=== PATIENT | female | born 1955 ===

== ENCOUNTER 2019-02-08 15:56 | Emergency (ER) | payer MEDICAID ==
[2019-02-08 16:29] VITALS: RESP 18
[2019-02-08] MEDS ORDERED: Sodium Chloride 0.9% 1,000 ML IV STA (17:14)
[2019-02-08 17:41] LABS: BASO # 0.1 K/uL (0.0-0.2); BASO % 1.1 % (0.0-2.0); EOS # 0.1 K/uL (0.0-0.7); EOS % 1.5 % (0.0-4.0); HEMOGLOBIN 12.4 g/dL (12.0-16.0); LYMPH % 34.5 % (20.0-40.0); MEAN CORPUSCULAR HEMOGLOBIN 29.3 pg (27.0-31.0); MEAN CORPUSCULAR HGB CONC 33.6 g/dL (33.0-37.0); MEAN PLATELET VOLUME 7.4 fl (7.2-11.7); MONO # 0.5 K/uL (0.0-0.8); MONO % 9.1 % (0.0-10.0); NEUT # 3.1 K/uL (1.8-7.0); NEUT % 53.8 % (50.0-75.0); NRBC % 0.1 % (0.0-0.0); RBC 4.23 Mil/uL (3.80-5.20); RED CELL DISTRIBUTION WIDTH 13.8 % (11.5-14.5); WHITE BLOOD COUNT 5.8 K/uL (4.8-10.8)
--- NOTE | 2019-02-08 17:46 | ED PDOC ---
HPI: Abdomen Time Seen by Provider: 02/08/19 16:00 Chief Complaint (Nursing): Female Genitourinary Chief Complaint (Provider): RLQ and Left Flank Pain History Per: Patient History/Exam Limitations: no limitations Onset/Duration Of Symptoms: Days (a few) Current Symptoms Are (Timing): Still Present Additional Complaint(s): 64 year old female presents to the ED for evaluation of RLQ and left flank pain for the past few days associated with nausea and chills. Patient states she believes she passed a kidney stone on her right side, since she has passed one in the past and believes it is similar pain. Yesterday, patient went to [place] for blood work, but does not know the results yet, but presents today due to worsening pain. Denies any other associated complaints. PMD: [place] Past Medical History Reviewed: Historical Data, Nursing Documentation, Vital Signs Vital Signs: Last Vital Signs Temp 98.6 F 02/08/19 16:27 Pulse 73 02/08/19 16:27 Resp 18 02/08/19 16:27 BP 173/102 H 02/08/19 16:27 Pulse Ox 98 02/08/19 16:27 - Medical History PMH: Diabetes, HTN, Kidney Stones, Chronic Kidney Disease Other PMH: GOUT - Surgical History Surgical History: No Surg Hx - Family History Family History: States: Unknown Family Hx - Social History Current smoker - smoking cessation education provided: No Alcohol: None Drugs: Denies - Immunization History Hx Tetanus Toxoid Vaccination: No Hx Influenza Vaccination: No Hx Pneumococcal Vaccination: No - Home Medications Home Medications: Ambulatory Orders Medication Instructions Recorded Levofloxacin [Levaquin] 750 mg PO DAILY 7 Days #7 tablet 02/08/19 metroNIDAZOLE [Flagyl] 500 mg PO BID 7 Days tab 02/08/19 - Allergies Allergies/Adverse Reactions: Allergies Allergy/AdvReac Type Severity Reaction Status Date / Time shellfish derived Allergy RASH Verified 02/08/19 16:29 Review of Systems ROS Statement: Except As Marked, All Systems Reviewed And Found Negative Constitutional: Positive for: Chills Gastrointestinal: Positive for: Nausea, Abdominal Pain (RLQ and left flank) Physical Exam - Reviewed Nursing Documentation Reviewed: Yes Vital Signs Reviewed: Yes - Physical Exam Appears: Positive for: No Acute Distress Head Exam: Positive for: ATRAUMATIC, NORMOCEPHALIC Skin: Positive for: Normal Color, Warm. Negative for: Rash Eye Exam: Positive for: Normal appearance ENT: Positive for: Normal ENT Inspection Neck: Positive for: Normal, Painless ROM, Supple Cardiovascular/Chest: Positive for: Regular Rate, Rhythm Respiratory: Positive for: Normal Breath Sounds. Negative for: Respiratory Distress Gastrointestinal/Abdominal: Positive for: Bowel Sounds, Soft, Tenderness (RLQ and left flank tenderness). Negative for: Mass, Guarding, Rebound Back: Positive for: Normal Inspection Extremity: Positive for: Normal ROM (all extremities) Neurological/Psych: Positive for: Awake, Alert, Oriented (x3). Negative for: Motor/Sensory Deficits - Laboratory Results Result Diagrams: 02/08/19 17:34 02/08/19 17:34 - ECG O2 Sat by Pulse Oximetry: 98 (RA) Pulse Ox Interpretation: Normal Medical Decision Making Medical Decision Making: Time: 1712 Impression: flank pain ro uti r/o pyelonephritis Plan: --CT abd/pelvis w/o contrast --CMP --CBC with differential --Normal saline IV --Toradol 15mg IV --Zofran 4mg IV --Urine culture --Urinalysis --Reevaluation 1899 Labs show some renal insufficiency. Patient care endorsed to Dr. Flynn pending CT and reeval. Scribe Attestation: Documented by Rosaura Castanon, acting as a scribe for Adelaida Friedman MD. Provider Scribe Attestation: All medical record entries made by the Scribe were at my direction and personally dictated by me. I have reviewed the chart and agree that the record accurately reflects my personal performance of the history, physical exam, medical decision making, and the department course for this patient. I have also personally directed, reviewed, and agree with the discharge instructions and disposition. Disposition - Clinical Impression Clinical Impression: Diverticulitis, UTI (urinary tract infection) - Patient ED Disposition Is Patient to be Admitted: Transfer of Care - Disposition Referrals: Sylvie Roche DO [[facility]] - Disposition: Transfer of Care Disposition Time: 19:00 Condition: IMPROVED Prescriptions: Levofloxacin [Levaquin] 750 mg PO DAILY 7 Days #7 tablet metroNIDAZOLE [Flagyl] 500 mg PO BID 7 Days tab Instructions: Urinary Tract Infections in Adults, Diverticulitis Forms: [facility] ([place]) Patient Signed Over To: Diogo Flynn
[2019-02-08 18:07] LABS: ALB/GLOB RATIO 1.1 (1.0-2.1); ALBUMIN 4.2 g/dL (3.5-5.0); CALCIUM 9.6 mg/dL (8.4-10.2)
--- NOTE | 2019-02-08 19:43 | ED PDOC ---
- Laboratory Results Result Diagrams: 02/08/19 17:34 02/08/19 17:34 Lab Results: Total Bilirubin 0.5 mg/dl (0.2-1.3) 02/08/19 17:34 AST 52 U/L (14-36) H 02/08/19 17:34 ALT 27 U/L (9-52) 02/08/19 17:34 Alkaline Phosphatase 107 U/L (38-126) 02/08/19 17:34 Total Protein 8.1 G/DL (6.3-8.2) 02/08/19 17:34 Albumin 4.2 g/dL (3.5-5.0) 02/08/19 17:34 Globulin 3.9 gm/dL (2.2-3.9) 02/08/19 17:34 Albumin/Globulin Ratio 1.1 (1.0-2.1) 02/08/19 17:34 - ECG O2 Sat by Pulse Oximetry: 98 (RA) Medical Decision Making Medical Decision Makin Patient care endorsed from Dr. Friedman to this provider pending CT and reevaluation. CT FINDINGS: LUNG BASES: The lung bases appear clear. No pleural effusions are seen. LIVER: Unremarkable. GALLBLADDER AND BILE DUCTS: The gallbladder appears within normal limits. No radioopaque gallstones are seen. No biliary ductal dilatation is evident. PANCREAS: Unremarkable. SPLEEN: Unremarkable. ADRENAL GLANDS: Unremarkable. KIDNEYS, URETERS, AND BLADDER: A punctate non-obstructing calculus is present in the superior pole of the left kidney. STOMACH AND BOWEL: There is diffuse diverticulosis noted involving descending and sigmoid colon. There is mild inflammatory stranding noted adjacent to the distal descending colon compatible with mild or resolving diverticulitis. APPENDIX: No evidence of acute appendicitis on CT examination. PERITONEUM: No free fluid. No free air. LYMPH NODES: No lymphadenopathy is evident. REPRODUCTIVE: Unremarkable as visualized. VASCULATURE: No evidence of abdominal aortic aneurysm. BONES: No aggressive appearing osseous lesion. No acute osseous pathology evident. IMPRESSION: 1. Diffuse diverticulosis noted involving descending and sigmoid colon. There is mild inflammatory stranding noted adjacent to the distal descending colon compatible with mild or resolving diverticulitis. 2. A punctate non-obstructing calculus is present in the superior pole of the left kidney. [address] and labs with patient. Advised to follow up with PMD for further care and eval as needed. All questions answered and patient well appearing, ready for discharge with stable vitals. Advised copious fluids. Return precautions were discussed: high fevers, sweats, vomiting, worsening pain, or any other concerning symptoms. Scribe Attestation: Documented by Rosaura Castanon, acting as a scribe for Diogo Flynn MD. Provider Scribe Attestation: All medical record entries made by the Scribe were at my direction and personally dictated by me. I have reviewed the chart and agree that the record accurately reflects my personal performance of the history, physical exam, medical decision making, and the department course for this patient. I have also personally directed, reviewed, and agree with the discharge instructions and disposition. Disposition - Clinical Impression Clinical Impression: Diverticulitis, UTI (urinary tract infection) - POA Present On Arrival: None - Disposition Referrals: Sylvie Roche DO [[facility]] - Disposition: Routine/Home Disposition Time: 22:01 Condition: IMPROVED Prescriptions: Levofloxacin [Levaquin] 750 mg PO DAILY 7 Days #7 tablet metroNIDAZOLE [Flagyl] 500 mg PO BID 7 Days tab Instructions: Urinary Tract Infections in Adults, Diverticulitis Forms: [facility] ([place])
[2019-02-08 21:24] LABS: SQUAMOUS EPITHIAL 5 /hpf (0-5); URINE BACTERIA MANY (<OCC); URINE BILIRUBIN NEGATIVE (NEGATIVE); URINE BLOOD SMALL (NEGATIVE); URINE CLARITY CLOUDY (Clear); URINE COLOR YELLOW (YELLOW); URINE GLUCOSE (UA) 50 mg/dL (NEGATIVE); URINE LEUKOCYTE ESTERASE LARGE Leu/uL (Negative); URINE PROTEIN 30 mg/dL (NEGATIVE); URINE UROBILINOGEN 0.2-1.0 mg/dL (0.2-1.0)
[2019-02-08 22:03] VITALS: BP 153/64; PULSE 66; TEMP 98.7
[2019-02-08 22:17] VITALS: O2SAT 98
--- NOTE | 2019-02-09 10:21 | CT ---
Date of service: 02/08/2019 PROCEDURE: CT Abdomen and Pelvis without intravenous contrast HISTORY: abd pain and flank pain COMPARISON: None. TECHNIQUE: Helical CT of the abdomen and pelvis was performed without oral or intravenous contrast as per referring physician request. Coronal and sagittal reformats were generated. Radiation dose: Total exam DLP = 875.01 mGy-cm. This CT exam was performed using one or more of the following dose reduction techniques: Automated exposure control, adjustment of the mA and/or kV according to patient size, and/or use of iterative reconstruction technique. FINDINGS: LOWER THORAX: Unremarkable. LIVER: Unremarkable. No gross lesion or ductal dilatation. GALLBLADDER AND BILE DUCTS: Unremarkable. PANCREAS: Unremarkable. No gross lesion or ductal dilatation. SPLEEN: Unremarkable. ADRENALS: Unremarkable. No mass. KIDNEYS AND URETERS: No obstructive uropathy or perinephric reaction. Punctate intrarenal calculi identified at the upper as well as the lower pole left kidney with a total of 2 identified. No radiodense calculi are seen at the right. No contour abnormality to suggest mass in either kidney grossly, in this unenhanced exam. VASCULATURE: Nonaneurysmal abdominal aortic calcific atherosclerotic changes are identified. BOWEL: The stomach is collapsed and poorly evaluated. Evaluation of the gastrointestinal tract is limited due to the lack of oral contrast administration. Distal left colonic diverticular changes are identified with borderline reactive changes at the proximal sigmoid segment raising question of potential trace diverticulitis. Clinically correlate further. No free air, ascites or abscess. APPENDIX: Unremarkable. Normal appendix. PERITONEUM: No free fluid. No free air. See bowel section as well. LYMPH NODES: Unremarkable. No enlarged lymph nodes. BLADDER: Poorly evaluated due to collapse. No radiodense cholelithiasis. Mural thickening not excluded mildly. REPRODUCTIVE: Unremarkable. BONES: No acute fracture. OTHER FINDINGS: None. IMPRESSION: 1. Two punctate intrarenal calculi identified at the left kidney which are nonobstructive with none identified at the right. No obstructive uropathy bilaterally. 2. Limited distal left colonic diverticulosis with borderline diverticulitis at the proximal sigmoid colon. No abscess or free intra peritoneal gas collection. No ascites. Clinically correlate further. Concordant preliminary report from [facility], 02/08/2019, 8:07 p.m..
== END 2019-02-08 22:30 | disposition home or self-care (01) ==
LOC: H.ER 15:56
DX: N39.0 Urinary tract infection, site not specified (principal); K57.32 Diverticulitis of large intestine without perforation or abscess without bleeding; I12.9 Hypertensive chronic kidney disease with stage 1 through stage 4 chronic kidney disease, or unspecified chronic kidney disease
CPT/HCPCS: 74176; 80053; 81003; 85025; 87086; 96374; 96375; 99284; J1885; J2405; J7030